=== PATIENT | male | born 1965 | race Caucasian/White ===

== ENCOUNTER 2018-12-23 17:17 | Emergency (ER) | payer SELFPAY ==
[2018-12-23] MEDS ORDERED: IBUPROFEN 200 MG TAB PO ONE (17:41)
[2018-12-23 17:42] VITALS: TEMP 99.2
--- NOTE | 2018-12-23 18:04 | RAD ---
EXAM DESCRIPTION: Chest,2 Views CLINICAL HISTORY: 53 years Male, cough sob, body ache COMPARISON: 05 June 2017 TECHNIQUE: PA/lateral FINDINGS: The patient is poststernotomy. Cardiomegaly is evident. The lungs are clear. No pleural fluid is seen. Degenerative changes are seen in the thoracic spine. IMPRESSION: Cardiomegaly is observed without evidence of congestive heart failure. 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
[2018-12-23] MEDS ORDERED: OSELTAMIVIR 75 MG CAP PO ONE (18:07)
--- NOTE | 2018-12-23 18:12 | ED.PDOC ---
History of Present Illness - General Chief Complaint: General Stated Complaint: Cough, congestion, fever Time Seen by Provider: 12/23/18 17:33 Source: patient Exam Limitations: no limitations - History of Present Illness Initial Comments: the patient is a 53-year-old male presenting to emergency room secondary to body aches along with a sore throat and runny nose and cough for the last 2 days. He has a headache as well. His has been sick for the past week. He does have generalized body aches. No altered mental status. No hypoxia. Severity: moderate Improving Factors: nothing Worsening Factors: nothing Associated Symptoms: cough, diaphoresis, fever/chills, headaches, loss of appetite, malaise, weakness Allergies/Adverse Reactions: Allergies NO KNOWN ALLERGY Allergy (Unverified 12/23/18 17:42) Home Medications: Ambulatory Orders Fenofibrate [Lipofen] 150 mg PO BEDTIME 01/09/15 Glipizide 10 mg PO BID 01/09/15 Gydureon 2 mg SC WKLY 01/09/15 Hydrochlorothiazide 12.5 mg PO DAILY 01/09/15 Lisinopril 20 mg PO BID 01/09/15 Meloxicam 15 mg PO DAILY 01/09/15 Metformin HCl [Glucophage] 1,000 mg PO BID 01/09/15 Omeprazole 20 mg PO DAILY 01/09/15 Pitavastatin Calcium [Livalo] 4 mg PO BEDTIME 01/09/15 Tadalafil [Cialis] 5 mg PO PRN PRN 01/09/15 Testosterone [Androgel] 25 mg TD DAILY 01/09/15 Oseltamivir Capsule [Tamiflu] 75 mg PO BID 5 Days #10 capsule 12/23/18 Review of Systems - Review of Systems Constitutional: States: chills, diaphoresis, fever, malaise, weakness EENTM: States: nose congestion, throat pain Respiratory: States: cough Cardiology: States: no symptoms reported Gastrointestinal/Abdominal: States: no symptoms reported Genitourinary: States: no symptoms reported Musculoskeletal: States: see HPI Skin: States: no symptoms reported Neurological: States: headache Endocrine: States: no symptoms reported All other Systems: No Change from Baseline Past Medical History (General) - Patient Medical History Hx Cardiac Disorders: Yes - [place] Hx Congestive Heart Failure: Yes Hx Hypertension: Yes Hx Diabetes: Yes Hx Gastroesophageal Reflux: Yes Hx Cancer: No Hx Hepatitis C: No Surgical History: coronary bypass surgery - Vaccination History Hx Influenza Vaccination: No Hx Pneumococcal Vaccination: No - Social History Hx Tobacco Use: Yes Hx Alcohol Use: Yes - Occasional - Female History Patient : No Family Medical History - Family History Mother Family History: Unknown Father Living Status: Hx Family Cancer: Yes Physical Exam - Physical Exam General Appearance: Alert, Comfortable, No apparent distress Eye Exam: bilateral normal Ears, Nose, Throat: hearing grossly normal, nasal congestion, pharyngeal erythema Neck: full range of motion, supple Respiratory: no respiratory distress, no accessory muscle use, wheezing Cardiovascular/Chest: normal peripheral pulses, regular rate, rhythm, no edema Peripheral Pulses: radial,right: 2+, radial,left: 2+ Gastrointestinal/Abdominal: non tender, soft Rectal Exam: deferred Back Exam: no CVA tenderness, no vertebral tenderness Extremity: normal range of motion, non-tender, normal inspection, no pedal edema, normal capillary refill Neurologic: physician assistant primary care II-XII nml as tested, alert, normal mood/affect, oriented x 3 Skin Exam: normal color Comments: Vital Signs - 24 hr 12/23/18 17:39 Temperature 99.2 F Pulse Rate [ 102 H Left Radial] Respiratory 28 H Rate Blood Pressure 142/82 [Left Arm] O2 Sat by Pulse 91 L Oximetry Progress - Progress Progress: 12/23/18 18:11 the patient is a 53-year-old male presenting to the emergency room secondary to what appears to be influenza. He has tested positive for this. Chest x-ray shows no evidence of any overt pneumonia. He does have chronic changes present. He needs to keep himself well hydrated and take Motrin 600 mg every 8 hours for the next few days to help reduce symptoms. He will also be written for Tamiflu for the flu itself. He needs follow-up with his primary care doctor next week. ER warnings were given. Departure - Departure Clinical Impression: Influenza Disposition: Discharge to Home or Self Care Condition: Fair Departure Forms: ED Discharge - Pt. Copy, Patient Portal Self Enrollment Instructions: Flu, Adult (DC) Diet: regular diet Activity: increase activity as tolerated Referrals: Dusty Gama MD [Primary Care Provider] - 1-2 Weeks Prescriptions: Oseltamivir Capsule [Tamiflu] 75 mg PO BID 5 Days #10 capsule Home Medications: Ambulatory Orders Fenofibrate [Lipofen] 150 mg PO BEDTIME 01/09/15 Glipizide 10 mg PO BID 01/09/15 Gydureon 2 mg SC WKLY 01/09/15 Hydrochlorothiazide 12.5 mg PO DAILY 01/09/15 Lisinopril 20 mg PO BID 01/09/15 Meloxicam 15 mg PO DAILY 01/09/15 Metformin HCl [Glucophage] 1,000 mg PO BID 01/09/15 Omeprazole 20 mg PO DAILY 01/09/15 Pitavastatin Calcium [Livalo] 4 mg PO BEDTIME 01/09/15 Tadalafil [Cialis] 5 mg PO PRN PRN 01/09/15 Testosterone [Androgel] 25 mg TD DAILY 01/09/15 Oseltamivir Capsule [Tamiflu] 75 mg PO BID 5 Days #10 capsule 12/23/18 Additional Instructions: the patient is a 53-year-old male presenting to the emergency room secondary to what appears to be influenza. He has tested positive for this. Chest x-ray shows no evidence of any overt pneumonia. He does have chronic changes present. He needs to keep himself well hydrated and take Motrin 600 mg every 8 hours for the next few days to help reduce symptoms. He will also be written for Tamiflu for the flu itself. He needs follow-up with his primary care doctor next week. ER warnings were given.
[2018-12-23 18:57] VITALS: BP 134/86; O2SAT 95
== END 2018-12-23 18:56 | disposition home or self-care (01) ==
LOC: ER 17:17
DX: J11.1 Influenza due to unidentified influenza virus with other respiratory manifestations (principal); I25.2 Old myocardial infarction; I50.9 Heart failure, unspecified; I11.0 Hypertensive heart disease with heart failure; E11.9 Type 2 diabetes mellitus without complications; K21.9 Gastro-esophageal reflux disease without esophagitis; Z95.1 Presence of aortocoronary bypass graft; Z87.891 Personal history of nicotine dependence; Z79.899 Other long term (current) drug therapy

== ENCOUNTER 2019-04-11 02:40 | Emergency (ER) | payer SELFPAY ==
[2019-04-11] MEDS ORDERED: ASPIRIN TABLET 325 MG TAB PO ONE (02:52)
[2019-04-11] MEDS ORDERED: NITROGLYCERIN 0.4 MG 25 EA TAB SL ONE (02:59)
--- NOTE | 2019-04-11 03:08 | RAD ---
EXAM: XR Chest, 1 View CLINICAL HISTORY: The patient is 54 years old and is Male; chest pain TECHNIQUE: Frontal view of the chest. COMPARISON: Chest radiograph from 03/25/2019 FINDINGS: LUNGS: Unremarkable. No consolidation. PLEURAL SPACE: Unremarkable. No pneumothorax. HEART: Stable moderate enlargement of the cardiac silhouette. MEDIASTINUM: Unremarkable. BONES/JOINTS: Post-sternotomy changes are noted. No acute fracture. IMPRESSION: No acute findings visualized in the chest. Electronically signed by: Gabriella Kline MD 04/11/2019 3:06 AM CDT
[2019-04-11] MEDS ORDERED: NITROGLYCERIN/D5W IV 250 ML IVS ONE (03:54)
[2019-04-11] MEDS ORDERED: NITROGLYCERIN/D5W IV 50,000 MCG in PREMIX BOTTLE 1 BOTTLE IVS SCH (04:00)
[2019-04-11] MEDS ORDERED: CLOPIDOGREL 75 MG TAB PO ONE (04:11)
--- NOTE | 2019-04-11 04:22 | ED.PDOC ---
History of Present Illness - General Time Seen by Provider: 04/11/19 02:42 Source: patient Exam Limitations: no limitations - History of Present Illness Initial Comments: the patient is a 54-year-old male presenting to the emergency room secondary to recurrent chest pain. The patient had similar chest pain 2 weeks ago when he had a myocardial infarction. He was sent to [facility] and apparently had a catheterization done. He is not really sure what the result of that was. He was however started on Plavix and several other cardiac medications. He was also given nitroglycerin. He did take 2 nitroglycerin at home which did reduce the chest pain somewhat. Chest pain initially was at a 7 and by the time of his arrival here was down to a 5. The pain didn't wake him from sleep. It did radiate to his right shoulder which it did last week as well. No real shortness of breath. He did have a feeling of palpitations for a few minutes. He does feel anxious. Timing/Duration: 1 hour Severity: moderate Improving Factors: medication Worsening Factors: nothing Associated Symptoms: chest pain Allergies/Adverse Reactions: Allergies NO KNOWN ALLERGY Allergy (Unverified 12/23/18 17:42) Home Medications: Ambulatory Orders Fenofibrate [Lipofen] 145 mg PO BEDTIME 01/09/15 Lisinopril 20 mg PO BID 01/09/15 Metformin HCl [Glucophage] 1,000 mg PO BID 01/09/15 Omeprazole 20 mg PO DAILY 01/09/15 Testosterone [Androgel] 25 mg TD DAILY 01/09/15 Aspirin [Aspirin Childrens] 81 mg PO DAILY 03/25/19 Atorvastatin Calcium [Lipitor] 80 mg PO BEDTIME 03/25/19 Carvedilol 3.125 mg PO BID 03/25/19 Dapagliflozin Propanediol [Farxiga] DAILY 04/11/19 Esomeprazole Magnesium [Nexium] 10 mg PO DAILY 04/11/19 Farxiga 10 mg 04/11/19 Saxagliptin-Metformin HCl [Kombiglyze Xr 5-1000 mg] 10 mg DAILY 04/11/19 Review of Systems - Review of Systems Constitutional: States: no symptoms reported EENTM: States: no symptoms reported Respiratory: States: no symptoms reported Cardiology: States: chest pain Gastrointestinal/Abdominal: States: no symptoms reported Genitourinary: States: no symptoms reported Musculoskeletal: States: no symptoms reported Skin: States: no symptoms reported Neurological: States: anxiety Endocrine: States: no symptoms reported All other Systems: No Change from Baseline Past Medical History (General) - Patient Medical History Hx Asthma: No Hx Cardiac Disorders: Yes - [place] Hx Congestive Heart Failure: Yes Hx Hypertension: Yes Hx Diabetes: Yes Hx Gastroesophageal Reflux: Yes Hx Cancer: No Hx Hepatitis C: No - Vaccination History Hx Influenza Vaccination: No Hx Pneumococcal Vaccination: No - Social History Hx Tobacco Use: Yes Hx Alcohol Use: Yes - Occasional Hx Physical Abuse: No Hx Emotional Abuse: No - Female History Patient : No Family Medical History - Family History Mother Family History: Unknown Hx Cardiac Disease: Yes - mom Hx Family Cancer: Yes - dad Father Living Status: Hx Family Cancer: Yes Physical Exam - Physical Exam General Appearance: Alert, Anxious Eye Exam: bilateral normal Ears, Nose, Throat: hearing grossly normal, normal ENT inspection Neck: full range of motion, supple Respiratory: lungs clear, normal breath sounds, no respiratory distress, no accessory muscle use Cardiovascular/Chest: normal peripheral pulses, regular rate, rhythm, no edema Peripheral Pulses: radial,right: 2+, radial,left: 2+, dorsalis pedis,right: 2+, dorsalis pedis,left: 2+ Gastrointestinal/Abdominal: non tender, soft Rectal Exam: deferred Back Exam: no CVA tenderness, no vertebral tenderness Extremity: normal range of motion, non-tender, normal inspection, no pedal edema, normal capillary refill 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 The patient is a patient of Dr. Méndez. 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 The patient has received oral nitroglycerin follby IV nitroglycerin. Chest pain has improved from 7 down to 2. He is also received Lovenox, aspirin and Plavix. He is being monitored on telemetry monitoring. No evidence of hypoxia. No evidence of overt CHF. Plan on transferring for specialty evaluation for unstable angina. - Results/Orders Results/Orders: Laboratory Tests 04/11/19 04/11/19 04/11/19 02:50 02:50 02:50 WBC 7.9 RBC 5.06 Hgb 14.2 Hct 42.8 MCV 84.6 MCH 28.0 MCHC 33.1 RDW 16.1 H Plt Count 89 L MPV 11.8 H Absolute Neuts (auto) 5.20 Absolute Lymphs (auto) 2.00 Absolute Monos (auto) 0.60 Absolute Eos (auto) 0.10 Absolute Basos (auto) 0.10 Neutrophils % 65.7 Lymphocytes % 25.1 Monocytes % 7.6 Eosinophils % 0.7 L Basophils % 0.9 PT 10.2 INR 1.02 PTT (SP) 21.9 Sodium 137 Potassium 4.2 Chloride 102 Carbon Dioxide 23 Anion Gap 16.2 BUN 21 H Creatinine 0.95 BUN/Creatinine Ratio 22.1 H Random Glucose 143 H Serum Osmolality 279.3 Calcium 9.3 Total Bilirubin 0.7 AST 36 ALT 34 Alkaline Phosphatase 53 Creatine Kinase 44 CK-MB (CK-2) 2.4 CK-MB (CK-2) % Not Reportable Troponin I 0.04 B-Natriuretic Peptide 277.0 H* Serum Total Protein 7.1 Albumin 4.2 Globulin 2.9 Albumin/Globulin Ratio 1.4 chest x-ray shows no acute pathology. EKG shows T-wave inversions in 1 and aVL along with poor progression in anterior leads. Both of these findings were present on his EKG from 2 weeks ago. He does have old Q waves in inferior leads as well. Normal sinus rhythm at 80 bpm. Left axis deviation. Left atrial dilation. Departure - Departure Clinical Impression: Unstable angina Disposition: Transfer to Hospital Referrals: APOLINAR VELASQUEZ [Primary Care Provider] - 1-2 Weeks Home Medications: Ambulatory Orders Fenofibrate [Lipofen] 145 mg PO BEDTIME 01/09/15 Lisinopril 20 mg PO BID 01/09/15 Metformin HCl [Glucophage] 1,000 mg PO BID 01/09/15 Omeprazole 20 mg PO DAILY 01/09/15 Testosterone [Androgel] 25 mg TD DAILY 01/09/15 Aspirin [Aspirin Childrens] 81 mg PO DAILY 03/25/19 Atorvastatin Calcium [Lipitor] 80 mg PO BEDTIME 03/25/19 Carvedilol 3.125 mg PO BID 03/25/19 Dapagliflozin Propanediol [Farxiga] DAILY 04/11/19 Esomeprazole Magnesium [Nexium] 10 mg PO DAILY 04/11/19 Farxiga 10 mg 04/11/19 Saxagliptin-Metformin HCl [Kombiglyze Xr 5-1000 mg] 10 mg DAILY 04/11/19 Transfer to Outside Facility - Transfer Information Accepting Provider:: dr sargent Accepting Facility: [facility] Reason for Transfer: required specialist not available
[2019-04-11] MEDS ORDERED: ENOXAPARIN SODIUM 60 MG/0.6 ML SYG SUBCU ONE (04:40)
[2019-04-11] MEDS ORDERED: ENOXAPARIN SODIUM 40 MG/0.4 ML SYG SUBCU ONE (04:41)
[2019-04-11 06:15] VITALS: BP 124/80; TEMP 98.2; O2SAT 95
== END 2019-04-11 06:00 | disposition short-term general hospital (02) ==
LOC: ER 02:40
DX: I20.0 Unstable angina (principal); I25.2 Old myocardial infarction; R00.2 Palpitations; I50.9 Heart failure, unspecified; I11.0 Hypertensive heart disease with heart failure; E11.9 Type 2 diabetes mellitus without complications; K21.9 Gastro-esophageal reflux disease without esophagitis; Z79.02 Long term (current) use of antithrombotics/antiplatelets; Z79.84 Long term (current) use of oral hypoglycemic drugs; Z79.899 Other long term (current) drug therapy; Z79.82 Long term (current) use of aspirin; Z87.891 Personal history of nicotine dependence
CPT/HCPCS: 36415; 71045; 80053; 82550; 82553; 83880; 84484; 85025; 85610; 85730; 93005; J1650

== ENCOUNTER 2019-04-30 02:55 | Observation (INO) | payer SELFPAY ==
[2019-04-30] MEDS ORDERED: NITROGLYCERIN 0.4 MG 25 EA TAB SL ONE (03:02)
[2019-04-30] MEDS ORDERED: ASPIRIN (CHEWABLE) 81 MG TAB PO ONE (03:03)
--- NOTE | 2019-04-30 03:17 | ED.PDOC ---
History of Present Illness - General Chief Complaint: Chest Pain/VT Stated Complaint: Chest Pain Time Seen by Provider: 04/30/19 03:13 Source: patient Exam Limitations: no limitations - History of Present Illness Initial Comments: Adithya Nelson 54 y/o male with of VT s/p CABG in January 2017 came to ER after he woke up with sharp chest pains radiating to both shoulder back of neck and shoulder blades about 0200 H early this am.No dizziness,no N/v,no SOB.Recently seen his Net Software Engineer Dr. Spears this April 2019 for follow up.Took 3 NTG SL prior to coming to ER gave him some relief with less CP just feeling tight. Timing/Duration: 1-3 hours, other - see hpi Location: central Activities at Onset: sleep Prior Chest Pain/Cardiac Workup: heart attack, other - CABG Nitro Today/Relief: 0.4 mg x 3, mild relief Aspirin Treatment Today: 81 mg x 4, provided by ED Allergies/Adverse Reactions: Allergies NO KNOWN ALLERGY Allergy (Unverified 12/23/18 17:42) Home Medications: Ambulatory Orders Fenofibrate [Lipofen] 150 mg PO BEDTIME 01/09/15 Lisinopril 20 mg PO BID 01/09/15 Metformin HCl [Glucophage] 1,000 mg PO DAILY 01/09/15 Aspirin [Aspirin Childrens] 81 mg PO DAILY 03/25/19 Atorvastatin Calcium [Lipitor] 80 mg PO BEDTIME 03/25/19 Esomeprazole Magnesium [Nexium] 10 mg PO DAILY 04/11/19 Farxiga 10 mg PO DAILY 04/11/19 Saxagliptin-Metformin HCl [Kombiglyze Xr 5-1000 mg] 10 mg PO DAILY 04/11/19 Carvedilol 12.5 mg PO BID 04/30/19 Clopidogrel Bisulfate 75 mg PO DAILY 04/30/19 Furosemide 40 mg PO Q12HR 04/30/19 Gabapentin [Neurontin] 300 mg PO TID 04/30/19 Isosorbide Mononitrate [Isosorbide Mononitrate ER] 60 mg PO DAILY 04/30/19 Nitroglycerin 0.4 mg Tab [Nitrostat] 0.4 mg SL PRN PRN 04/30/19 [id number]-[id number] Ethyl Esters [Lovaza 1 gm] 1 cap PO DAILY 04/30/19 Potassium Chloride [K-Tab] 20 meq PO DAILY 04/30/19 Review of Systems - Review of Systems Constitutional: States: no symptoms reported EENTM: States: no symptoms reported Respiratory: States: no symptoms reported Cardiology: States: see HPI Gastrointestinal/Abdominal: States: no symptoms reported Genitourinary: States: no symptoms reported Musculoskeletal: States: no symptoms reported Skin: States: no symptoms reported All other Systems: Reviewed and Negative, No Change from Baseline Past Medical History (General) - Patient Medical History Hx Seizures: No Hx Stroke: No Hx Dementia: No Hx Asthma: No Hx of COPD: No Hx Cardiac Disorders: Yes - VT Hx Congestive Heart Failure: Yes Hx Pacemaker: No Hx Hypertension: Yes Hx Thyroid Disease: No Hx Diabetes: Yes Hx Gastroesophageal Reflux: Yes Hx Renal Disease: No Hx Cancer: No Hx of HIV: No Hx Hepatitis C: No Hx MRSA: No Surgical History: coronary bypass surgery - Vaccination History Hx Tetanus, Diphtheria Vaccination: No Hx Influenza Vaccination: No Hx Pneumococcal Vaccination: No - Social History Hx Tobacco Use: Yes Hx Alcohol Use: Yes - Occasional Hx Substance Use: No Hx Substance Use Treatment: No Hx Depression: No Hx Physical Abuse: No Hx Emotional Abuse: No Hx Suspected Abuse: No - Female History Patient : No Family Medical History - Family History Mother Family History: Unknown Hx Cardiac Disease: Yes - mom Hx Family Cancer: Yes - dad Father Living Status: Hx Family Cancer: Yes Physical Exam - Physical Exam General Appearance: Alert, Anxious, No apparent distress Eyes, Ears, Nose, Throat Exam: normal ENT inspection Neck: supple, normal inspection Respiratory: chest non-tender, lungs clear, normal breath sounds, no respiratory distress Cardiovascular/Chest: normal peripheral pulses, regular rate, rhythm, no murmur Peripheral Pulses: radial,right: 2+, radial,left: 2+ Gastrointestinal/Abdominal: soft, no organomegaly Extremity: no pedal edema, no calf tenderness Neurologic: alert, oriented x 3 Skin Exam: normal color, warm/dry Progress - Progress Progress: 04/30/19 03:56 Vital Signs - 8 hr 04/30/19 04/30/19 03:10 03:11 Temperature 96.8 F L Pulse Rate [ 88 75 Monitor] Respiratory 20 20 Rate Blood Pressure 139/76 [Right Arm] O2 Sat by Pulse 95 Oximetry - Results/Orders Results/Orders: 04/30/19 03:02 IV Care:Saline Lock per Protoc QSHIFT Telemetry .ONCE EKG Stat Pulse Ox Stat 04/30/19 03:03 Pulse Oximetry Assessment DAILY 04/30/19 05:10 RBC MORPHOLOGY Stat 04/30/19 05:45 ED Intent to Admit Routine Laboratory Results - last 24 hr 04/30/19 04/30/19 03:02 05:05 WBC 8.0 RBC 5.14 Hgb 14.6 Hct 43.8 MCV 85.3 MCH 28.5 MCHC 33.4 RDW 16.8 H Plt Count 100 L MPV 11.3 H Absolute Neuts (auto) 4.80 Absolute Lymphs (auto) 2.50 Absolute Monos (auto) 0.60 Absolute Eos (auto) 0.10 Absolute Basos (auto) 0.00 Neutrophils % 60.4 Lymphocytes % 30.7 Monocytes % 7.3 Eosinophils % 1.0 Basophils % 0.6 PT 9.9 INR 0.99 PTT (SP) 22.1 Sodium 134 L Potassium 3.9 Chloride 99 L Carbon Dioxide 22 Anion Gap 16.9 BUN 23 H Creatinine 1.08 BUN/Creatinine Ratio 21.3 H Random Glucose 168 H Serum Osmolality 275.8 Calcium 9.6 Magnesium 1.9 Total Bilirubin 0.7 Direct Bilirubin 0.1 Indirect Bilirubin 0.6 AST 22 ALT 26 Alkaline Phosphatase 52 Creatine Kinase 35 L CK-MB (CK-2) 2.7 CK-MB (CK-2) % Not Reportable Troponin I 0.03 0.02 B-Natriuretic Peptide 186.0 H Serum Total Protein 7.4 Albumin 4.3 Discuss test result with patient and discuss hospital OBS for further serial cardiac enzymes agreed with plan. - EKG/XRAY/CT EKG: Sinus, Unchanged from - 11 April 2019 Comments: HR-85;old q-waves 111,AVF,t-wave inversion avl XRAY: chest - no acute disease Departure - Departure Clinical Impression: Chest tightness, History of VT (myocardial infarction), S/P CABG x 1 Diabetes Qualifiers: Diabetes mellitus type: type 2 Diabetes mellitus penitentiary insulin use: without penitentiary use Diabetes mellitus complication status: with unspecified complications Qualified Code(s): E11.8 - Type 2 diabetes mellitus with unspecified complications Time of Disposition: 05:47 Disposition: Admit Patient Condition: Fair Departure Forms: Patient Portal Self Enrollment Referrals: APOLINAR VELASQUEZ [Primary Care Provider] - 1-2 Weeks Home Medications: Ambulatory Orders Fenofibrate [Lipofen] 150 mg PO BEDTIME 01/09/15 Lisinopril 20 mg PO BID 01/09/15 Metformin HCl [Glucophage] 1,000 mg PO DAILY 01/09/15 Aspirin [Aspirin Childrens] 81 mg PO DAILY 03/25/19 Atorvastatin Calcium [Lipitor] 80 mg PO BEDTIME 03/25/19 Esomeprazole Magnesium [Nexium] 10 mg PO DAILY 04/11/19 Farxiga 10 mg PO DAILY 04/11/19 Saxagliptin-Metformin HCl [Kombiglyze Xr 5-1000 mg] 10 mg PO DAILY 04/11/19 Carvedilol 12.5 mg PO BID 04/30/19 Clopidogrel Bisulfate 75 mg PO DAILY 04/30/19 Furosemide 40 mg PO Q12HR 04/30/19 Gabapentin [Neurontin] 300 mg PO TID 04/30/19 Isosorbide Mononitrate [Isosorbide Mononitrate ER] 60 mg PO DAILY 04/30/19 Nitroglycerin 0.4 mg Tab [Nitrostat] 0.4 mg SL PRN PRN 04/30/19 Gzrxr-6-Syne Ethyl Esters [Lovaza 1 gm] 1 cap PO DAILY 04/30/19 Potassium Chloride [K-Tab] 20 meq PO DAILY 04/30/19 Decision To Admit - Decistion To Admit Decision to Admit Reason: Admit from ER Decision to Admit Date: 04/30/19 - D/W Matheus Yu Decision to Admit Time: 05:45
--- NOTE | 2019-04-30 03:34 | RAD ---
Chest single view on 04/30/2019 CLINICAL INDICATION: Chest pain COMPARISON: 04/11/2019 FINDINGS: Right costophrenic angle is not imaged. The right lung apex is not completely imaged either. The patient is status post median sternotomy. Multiple old broken sternotomy wires are noted. Cardiomegaly is noted. Visualized lungs are clear. Hilar and mediastinal contours are within normal limits. Pulmonary vascularity is within normal limits. IMPRESSION: No acute disease. Electronically signed by: Mykel Méndez 04/30/2019 3:32 AM CDT
[2019-04-30] MEDS ORDERED: ACETAMINOPHEN 325 MG TAB PO PRN (08:16)
[2019-04-30] MEDS ORDERED: MORPHINE SULFATE INJ 10 MG/ML VIAL IV PRN (08:16)
[2019-04-30] MEDS ORDERED: NITROGLYCERIN 0.4 MG 25 EA TAB SL PRN (08:16)
[2019-04-30] MEDS ORDERED: SODIUM CHLORIDE 0.9% (FLUSH) 10 ML SYG IV PRN (08:16)
[2019-04-30] MEDS ORDERED: IV SET AND CAP CHANGE INJ INJ SCH (08:30)
[2019-04-30] MEDS ORDERED: ENOXAPARIN SODIUM 40 MG/0.4 ML SYG SUBCU SCH (08:30)
[2019-04-30] MEDS ORDERED: POTASSIUM CHLORIDE 20 MEQ TAB PO SCH (09:00)
[2019-04-30] MEDS ORDERED: ASPIRIN (CHEWABLE) 81 MG TAB PO SCH (09:00)
[2019-04-30] MEDS ORDERED: LISINOPRIL 10 MG TAB PO SCH ×2 (09:00→10:15)
[2019-04-30] MEDS ORDERED: GABAPENTIN 300 MG CAP PO SCH (09:00)
[2019-04-30] MEDS ORDERED: SODIUM CHLORIDE 0.9% (FLUSH) 10 ML SYG IV SCH (09:00)
[2019-04-30] MEDS ORDERED: FUROSEMIDE 40 MG TAB PO SCH (09:00)
[2019-04-30] MEDS ORDERED: CARVEDILOL 12.5 MG TAB PO SCH (09:00)
[2019-04-30] MEDS ORDERED: ISOSORBIDE MONONITRATE (IMDUR) 30 MG TAB PO SCH (09:00)
[2019-04-30] MEDS ORDERED: CLOPIDOGREL 75 MG TAB PO SCH (09:00)
[2019-04-30] MEDS ORDERED: SAXAGLIPTIN PO SCH (12:00)
[2019-04-30] MEDS ORDERED: METFORMIN PO SCH (12:00)
[2019-04-30 13:56] VITALS: BP 103/64; TEMP 97.8; O2SAT 94
[2019-04-30] MEDS ORDERED: metFORMIN HCL 500 MG TAB PO SCH (17:00)
[2019-04-30] MEDS ORDERED: ATORVASTATIN 20 MG TAB PO SCH (21:00)
[2019-04-30] MEDS ORDERED: FENOFIBRIC ACID 135 MG CAP PO SCH (21:00)
[2019-05-01] MEDS ORDERED: PANTOPRAZOLE SODIUM TAB 40 MG PO SCH (06:30)
[2019-05-01] MEDS ORDERED: ASPIRIN TABLET 325 MG TAB PO SCH (09:00)
--- NOTE | 2019-05-04 11:33 | SSS ---
SUPERVISING PHYSICIAN: Ramiro Jaramillo MD DATE OF ADMISSION: 04/30/19 DATE OF DISCHARGE: 04/30/19 DISCHARGE DIAGNOSIS: 1. Chest pain, rule out myocardial infarction. 2. Unstable angina. 3. Triple vessel disease. 4. 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 5. Hypertension. 6. Type 2 diabetes mellitus. 7. Nicotine dependence. CHIEF COMPLAINT: Chest pain. HISTORY OF PRESENT ILLNESS: This a 54-year-old male patient with history of myocardial infarction in the past. He also had a coronary artery bypass graft in 2017. He came to the Emergency Room after he woke up with sharp substernal chest pain that radiated to his left shoulder as well as to his back and neck. He woke up about 2 AM and came to the Emergency Room. He took 3 nitro prior to coming to the Emergency Room. He had just seen his manager b[employer] on the Friday prior to his admission for a hospital followup. He had been in the hospital for chest pain on 04/11/19 in [place]. He refused a cardiac catheterization at that time as he is at high risk for intervention. He stated the pain he had prior to coming to the Emergency Room was very similar to his previous pain when he had his heart attack. His vital signs in the Emergency Room showed temperature 96.8, heart rate 75, blood pressure 139/79, respiratory rate 20, O2 saturation 95%. There were no EKG changes on his EKG and his initial cardiac enzymes were negative. He had a followup troponin 2 hours after his initial set and his troponin was also negative. His sodium was 134, chloride 99, BUN 23, glucose 168. CBC was unremarkable. The patient was placed in Observation in the hospital. PAST MEDICAL HISTORY: 1. Myocardial infarction. 2. Triple vessel disease. 3. Diabetes mellitus, type 2. 4. Hypertension. 5. Tobacco abuse. PAST SURGICAL HISTORY: 1. Coronary artery bypass graft in 2017. HOME MEDICATIONS: Per the EMR. ALLERGIES: NO KNOWN DRUG ALLERGIES. SOCIAL HISTORY: He smokes one pack of cigarettes daily and has for many years. He drinks ETOH socially. He denies any illicit drug use. REVIEW OF SYSTEMS: Negative at the time of my examination. PHYSICAL EXAMINATION: VITAL SIGNS: Temperature 97.8. Heart rate 72. Blood pressure 103/64. Respiratory rate 16. O2 saturation 94% on room air. GENERAL: This is a 54-year-old male patient who is walking around in his room, he is in no acute distress. HEENT: Normocephalic, atraumatic. Pupils are equal and reactive. Oropharynx is clear. NECK: Supple without mass. RESPIRATORY: Essentially clear to auscultation bilaterally. CHEST: There is equal rise and fall of the chest with inspiration and expiration. CARDIOVASCULAR: Regular rate and rhythm. GASTROINTESTINAL: Abdomen is soft, nondistended, nontender. Bowel sounds are positive. SKIN: Warm and dry. NEUROLOGIC: Awake, alert and oriented times three. LABORATORY: His followup lab showed serial cardiac enzymes to be negative. RADIOLOGY: Chest x-ray shows no acute disease. HOSPITAL COURSE: The patient was placed in Observation in the hospital. He had no further complaint of chest pain after admission. He will be discharged home in stable condition. DISCHARGE PLAN: The patient will be discharged home in stable condition. I did attempt to call his manager bilingual, Dr. Meeks, for followup, but the phone call was not returned as they said he was in the [employer]. I encouraged the patient to call Dr. Meeks's office and let him know that he was in the hospital for chest pain. He also has a followup appointment with his primary care physician, Dr. Adela Amaya, on 05/10/19. He is to resume his previous diabetic diet as well as increase his activity as tolerated. I strongly encouraged him to stop smoking. No new prescriptions were given to the patient. He is to return to the hospital or followup with Dr. Meeks or Dr. Amaya for any problems or complications. DISCHARGE MEDICATIONS: 1. Metformin. 2. Lisinopril. 3. Lipofen. 4. Aspirin 81 mg. 5. Lipitor. 6. Kombiglyze. 7. Farxiga. 8. Nexium. 9. Lovaza. 10. Nitrostat. 11. Neurontin. 12. Isosorbide mononitrate. 13. Furosemide. 14. Plavix. 15. Carvedilol. 16. Potassium chloride. 17. Spironolactone. 18. Tresiba insulin. 19. Ranexa. #[id number] [facility]
== END 2019-04-30 17:10 | disposition hospice, inpatient (51) ==
LOC: ER 02:55 → MS 06:00
PROVIDERS: ADMIT Nurse Practitioner Acute Care; ATTEND Nurse Practitioner Acute Care
DX: I25.110 Atherosclerotic heart disease of native coronary artery with unstable angina pectoris (principal); R07.89 Other chest pain; I25.5 Ischemic cardiomyopathy; I11.0 Hypertensive heart disease with heart failure; I50.9 Heart failure, unspecified; E11.9 Type 2 diabetes mellitus without complications; K21.9 Gastro-esophageal reflux disease without esophagitis; I25.2 Old myocardial infarction; F17.210 Nicotine dependence, cigarettes, uncomplicated; Z95.1 Presence of aortocoronary bypass graft; Z79.84 Long term (current) use of oral hypoglycemic drugs; Z79.82 Long term (current) use of aspirin; Z79.02 Long term (current) use of antithrombotics/antiplatelets; Z79.899 Other long term (current) drug therapy
CPT/HCPCS: J1650; 82553 ×3; 36415 ×3; 82550 ×3; 80048; 85025; 85730; 85610; 84484 ×4; 80076; 83880; 71045; 94760; 99285; 93005 ×3; G0378